=== PATIENT | female | born 1935 | race Caucasian/White ===

== ENCOUNTER 2019-01-19 08:16 | Emergency (ER) | payer MEDICARE, OTHER ==
[~2019-01-19] VITALS: Ht 175.3 cm; Wt 77.6 kg
[~2019-01-19 08:16] MED LIST: ALPR.25; AMIT25 PO; AMLO10; AMLO10 PO; AMOX500 PO; ASCO1ER; ASCO500 PO; ASPI81CH PO; ASPI81EC; ASPI81EC PO; ATOR10; ATOR10 PO; ATOR40TA; CALCAVITD PO; CARB200; CARB200 PO; CARB200ER; CARB200ER PO; CEFTIN PO; CELE200; CEPH500 PO; CLON.1; CLON.1 PO; CLON.2; CLON.2 PO; CLON.3; CLON.3TP; CLON.5; CLON.5 PO; DIPH50; DOCU100 PO; DULO30; DULO60; ESTR.05PBW TOP; FISH1000; FISH1000 PO; HYDACE10B; HYDACE5 PO; HYDCHL25 PO; Hydrocodone Bt1 EACH PO; K-Dur20 MEQ PO; LEVO750 PO; LEVSOD50 PO; LISHYD2025 PO; LISI10 PO; LOSA50 PO; MELO7.5; MELO7.5 PO; METO50; METO50 PO; MINO2.5; MINO2.5 PO; MOM; MORP30ER PO; MULVITA; MULVITA PO; MULVITMIND PO; OLAN5 PO; OLME20; OLME20 PO; OPANA; OXYC20ER; OXYGEN; Omeprazole20 M1 PO; POTA20PAC; PREG75; Prozac40 MG PO; RAMI5; SENN187 PO; SENNA; SPIR25; SYMBYAX; TEKTURNA; TEMA15 PO; TEMA30; TEMA30 PO; TIZA4; TIZA4 PO; TRAM50; TRIHYD253A; Ultram50 MG PO; VERA100; VERAPAMIL; VIVELLE-DOT; [UNRECOGNIZED DRUG - CODE]
[2019-01-19 09:10] LABS: BASOPHILS ABSOLUTE AUTO 0.02 K/mm3 (0.00-0.23); BASOPHILS PERCENT AUTO 0 % (0-2); EOSINOPHILS ABSOLUTE AUTO 0.03 K/mm3 (0.00-0.68); EOSINOPHILS PERCENT AUTO 1 % (0-6); Hematocrit 41.3 % (33.0-51.0); Hemoglobin 13.9 g/dL (11.5-16.0); IMMATURE GRAN ABSOLUTE AUTO 0.01 K/mm3 (0.00-0.10); IMMATURE GRAN PERCENT AUTO 0 % (0-1); LYMPHOCYTES ABSOLUTE AUTO 0.62 K/mm3 (0.84-5.20); LYMPHOCYTES PERCENT AUTO 11 % (21-46); MONOCYTES ABSOLUTE AUTO 0.45 K/mm3 (0.16-1.47); MONOCYTES PERCENT AUTO 8 % (4-13); Mean Corpuscular HGB 30.6 pg (26.0-34.0); Mean Corpuscular HGB Conc 33.7 g/dL (31.5-36.5); Mean Corpuscular Volume 91 fL (80-100); Mean Platelet Volume 9.8 fL (9.1-12.4); NEUTROPHILS ABSOLUTE AUTO 4.43 K/mm3 (1.96-9.15); NEUTROPHILS PERCENT AUTO 80 % (41-73); Platelet Count 249 K/mm3 (150-400); RDW Standard Deviation 43.3 fL (35.1-46.3); Red Blood Cell Count 4.54 M/mm3 (3.80-5.20); White Blood Cell Count 5.56 K/mm3 (4.00-11.30)
[2019-01-19 09:33] LABS: Alanine Aminotransfer (ALT/SGP 32 U/L (12-78); Albumin, Blood 3.4 g/dL (3.4-5.0); Alk Phos 105 U/L (50-136); Anion Gap 11 mmol/L (6-16); Aspartate Aminotrans (AST/SGOT 21 U/L (12-37); Bilirubin, Total 0.4 mg/dL (0.1-1.0); Blood Urea Nitrogen 16 mg/dL (8-24); Bun/Creatinine Ratio 22.8 (12.0-20.0); CO2, Blood 24 mmol/L (21-32); Calcium, Blood 10.1 mg/dL (8.5-10.1); Chloride, Blood 108 mmol/L (98-108); Globulin, Blood 3.5 g/dL (2.2-4.0); Glomerular Filtration Rate >60 (60-); Glucose, Blood 179 mg/dL (70-99); Potassium, Blood 3.8 mmol/L (3.5-5.5); Sodium, Blood 143 mmol/L (136-145); Total Protein, Blood 6.9 g/dL (6.4-8.2)
[2019-01-19 09:43] LABS: Source, Urine Clean Catch
[2019-01-19 10:02] LABS: Bilirubin, Urine Neg (Neg); Blood, Urine Neg (Neg); Glucose Qualitative, Urine Neg (Neg); Ketones, Urine Neg (Neg); Leukocyte Esterase, Urine Neg (Neg); Nitrite, Urine Pos (Neg); Protein, Urine Neg (Neg); Specific Gravity, Urine 1.015 (1.003-1.022); Urobilinogen, Urine NORM (Normal)
[2019-01-19 10:13] LABS: Appearance, Urine Hazy (Clear); Color, Urine Yellow (P-Yellow)
[2019-01-19 10:15] LABS: Bacteria Many /hpf; Red Blood Cells, Urine Not Seen /hpf (0-2); Squamous Epithelial Cells Rare /hpf (Few)
[2019-01-19] MEDS ORDERED: LEVSOD50 PO (12:50)
[2019-01-19] MEDS ORDERED: ZESTRIL40 MG PO (12:50)
== END 2019-01-19 13:42 | disposition home or self-care (01) ==
LOC: ER 08:16
PROVIDERS: Emergency Medicine
DX: K59.00 Constipation, unspecified (principal); I10 Essential (primary) hypertension; Z88.5 Allergy status to narcotic agent; Z88.8 Allergy status to other drugs, medicaments and biological substances; Z79.1 Long term (current) use of non-steroidal anti-inflammatories (NSAID); Z79.899 Other long term (current) drug therapy; Z79.891 Long term (current) use of opiate analgesic; Z79.82 Long term (current) use of aspirin
CPT/HCPCS: 74177; 80053; 81001; 82272; 83690; 85025; 87077; 87086; 87186; 96361; 96374-59; 96375; 99285-25; J1170; J2405; J7120; Q9967

== ENCOUNTER 2019-01-27 07:21 | Emergency (ER) | payer MEDICARE, OTHER ==
[~2019-01-27] VITALS: Ht 172.7 cm; Wt 86.2 kg
[~2019-01-27 07:21] MED LIST changes: +ZESTRIL40 MG PO
[2019-01-27 07:43] LABS: BASOPHILS ABSOLUTE AUTO 0.01 K/mm3 (0.00-0.23); BASOPHILS PERCENT AUTO 0 % (0-2); EOSINOPHILS ABSOLUTE AUTO 0.02 K/mm3 (0.00-0.68); EOSINOPHILS PERCENT AUTO 0 % (0-6); Hematocrit 42.5 % (33.0-51.0); Hemoglobin 14.7 g/dL (11.5-16.0); IMMATURE GRAN ABSOLUTE AUTO 0.04 K/mm3 (0.00-0.10); IMMATURE GRAN PERCENT AUTO 1 % (0-1); LYMPHOCYTES ABSOLUTE AUTO 0.91 K/mm3 (0.84-5.20); LYMPHOCYTES PERCENT AUTO 12 % (21-46); MONOCYTES PERCENT AUTO 8 % (4-13); Mean Corpuscular HGB 30.8 pg (26.0-34.0); Mean Corpuscular HGB Conc 34.6 g/dL (31.5-36.5); Mean Corpuscular Volume 89 fL (80-100); Mean Platelet Volume 9.4 fL (9.1-12.4); NEUTROPHILS ABSOLUTE AUTO 6.35 K/mm3 (1.96-9.15); NEUTROPHILS PERCENT AUTO 80 % (41-73); Platelet Count 301 K/mm3 (150-400); RDW Coefficient Variation 13.1 % (11.7-14.2); RDW Standard Deviation 42.6 fL (35.1-46.3); Red Blood Cell Count 4.78 M/mm3 (3.80-5.20); White Blood Cell Count 7.93 K/mm3 (4.00-11.30)
[2019-01-27 08:03] LABS: Alanine Aminotransfer (ALT/SGP 38 U/L (12-78); Albumin, Blood 3.9 g/dL (3.4-5.0); Alk Phos 112 U/L (50-136); Anion Gap 13 mmol/L (6-16); Aspartate Aminotrans (AST/SGOT 27 U/L (12-37); Bilirubin, Total 0.4 mg/dL (0.1-1.0); Blood Urea Nitrogen 18 mg/dL (8-24); Bun/Creatinine Ratio 28.2 (12.0-20.0); CO2, Blood 23 mmol/L (21-32); Calcium, Blood 9.9 mg/dL (8.5-10.1); Chloride, Blood 99 mmol/L (98-108); Creatinine, Blood 0.64 mg/dL (0.40-1.00); Globulin, Blood 3.8 g/dL (2.2-4.0); Glomerular Filtration Rate >60 (60-); Glucose, Blood 165 mg/dL (70-99); Potassium, Blood 3.5 mmol/L (3.5-5.5); Sodium, Blood 135 mmol/L (136-145); Total Protein, Blood 7.7 g/dL (6.4-8.2)
== END 2019-01-27 11:41 | disposition home or self-care (01) ==
LOC: ER 07:21
PROVIDERS: Emergency Medicine
DX: K59.00 Constipation, unspecified (principal); I10 Essential (primary) hypertension; F32.9 Major depressive disorder, single episode, unspecified; G47.33 Obstructive sleep apnea (adult) (pediatric); E03.9 Hypothyroidism, unspecified; Z88.8 Allergy status to other drugs, medicaments and biological substances; Z88.5 Allergy status to narcotic agent; Z79.891 Long term (current) use of opiate analgesic; Z79.82 Long term (current) use of aspirin; Z79.899 Other long term (current) drug therapy
CPT/HCPCS: 36415; 74177; 80053; 83690; 85025; 96361; 96374-59; 99284-25; J1170; J7030; Q9967

== ENCOUNTER 2019-02-06 13:52 | Emergency (ER) | payer MEDICARE, OTHER ==
[~2019-02-06] VITALS: Ht 175.3 cm; Wt 77.6 kg
[2019-02-06 14:27] LABS: BASOPHILS ABSOLUTE AUTO 0.02 K/mm3 (0.00-0.23); BASOPHILS PERCENT AUTO 0 % (0-2); EOSINOPHILS ABSOLUTE AUTO 0.04 K/mm3 (0.00-0.68); EOSINOPHILS PERCENT AUTO 1 % (0-6); Hematocrit 46.7 % (33.0-51.0); Hemoglobin 15.9 g/dL (11.5-16.0); IMMATURE GRAN ABSOLUTE AUTO 0.02 K/mm3 (0.00-0.10); IMMATURE GRAN PERCENT AUTO 0 % (0-1); LYMPHOCYTES ABSOLUTE AUTO 1.31 K/mm3 (0.84-5.20); LYMPHOCYTES PERCENT AUTO 19 % (21-46); MONOCYTES ABSOLUTE AUTO 0.67 K/mm3 (0.16-1.47); MONOCYTES PERCENT AUTO 10 % (4-13); Mean Corpuscular HGB 31.2 pg (26.0-34.0); Mean Platelet Volume 9.4 fL (9.1-12.4); NEUTROPHILS ABSOLUTE AUTO 4.91 K/mm3 (1.96-9.15); NEUTROPHILS PERCENT AUTO 70 % (41-73); Platelet Count 267 K/mm3 (150-400); RDW Coefficient Variation 13.4 % (11.7-14.2); RDW Standard Deviation 45.2 fL (35.1-46.3); Red Blood Cell Count 5.09 M/mm3 (3.80-5.20); White Blood Cell Count 6.97 K/mm3 (4.00-11.30)
[2019-02-06 14:40] LABS: Mean Corpuscular Volume 92 fL (80-100)
[2019-02-06 14:54] LABS: Alanine Aminotransfer (ALT/SGP 41 U/L (12-78); Alk Phos 132 U/L (50-136); Anion Gap 11 mmol/L (6-16); Aspartate Aminotrans (AST/SGOT 22 U/L (12-37); Bilirubin, Total 0.6 mg/dL (0.1-1.0); Blood Urea Nitrogen 16 mg/dL (8-24); Bun/Creatinine Ratio 21.9 (12.0-20.0); CO2, Blood 24 mmol/L (21-32); Calcium, Blood 10.7 mg/dL (8.5-10.1); Chloride, Blood 103 mmol/L (98-108); Creatinine, Blood 0.73 mg/dL (0.40-1.00); Globulin, Blood 4.1 g/dL (2.2-4.0); Glomerular Filtration Rate >60 (60-); Glucose, Blood 114 mg/dL (70-99); Potassium, Blood 3.6 mmol/L (3.5-5.5); Sodium, Blood 138 mmol/L (136-145); Total Protein, Blood 8.1 g/dL (6.4-8.2)
--- NOTE | 2019-02-06 17:11 | NUR ---
INITIAL [facility] VISIT MADE IN ER RM# [address] REQUEST. PT HAD VOICED DESIRE FOR "PATIENT ASSISTED SUICIDE" DURING DR'S CONVERSATION WITH PT. VISIT MADE FOR S/S MANAGEMENT, DETERMINE GOALS OF CARE AND PT'S WISHES FOR CARE. THIS IS PT'S THIRD ER VISIT IN 3-4 WEEKS FOR ABDOMINAL PAIN. HER FIRST TWO VISITS WERE FOR RIGHT AND LEFT LOWER QUAD ABD PAIN AND PT WAS FOUND TO BE CONSTIPATED. SHE REPORTS SEVERE EPIGASTRIC PAIN STARTING THIS AM AND CAME TO ER FOR EVAL. TEMO IS AN 83 YR OLD FEMALE WITH HX OF HTN (BP IN ER RIGHT NOW IS 195/98 PER MONITOR AND AUTO BP CHECK), GENNA, HYPOTHYROID, DEPRESSION AND POLYCYSTIC KIDNEY AND LIVER DISEASE NOTED PREVIOUSLY. HER CT SCAN TODAY WAS NEGATIVE FOR ANY ACUTE PROCESS OR CHANGE FROM THE CT DONE 01/27 AND THE ONE DONE A NUMBER OF WEEKS BEFORE THAT, PER . PT APPEARS VERY ANXIOUS TO THE POINT OF HYPERVENTILATING SEVERAL TIMES WHILE I WAS IN THE ROOM WITH HER FOR APPROX 1 HOUR. I ASKED PT IF SHE WAS SINCERE IN HER REQUEST FOR PAS. I EXPLAINED THAT WE DO NOT DO PAS HERE, THE STRINGENT PROCESS AND CRITERIA FOR SEEKING PAS. I EXPLAINED SHE WOULD REQUIRE A TERMINAL DX, WHICH SHE DOES NOT HAVE AND SHE WOULD NOT BE CONSIDERED IF SHE HAS ACTIVE DEPRESSION. PT STATED SHE WAS HALF-JOKING BUT IS FRUSTRATED. I ASKED QUESTIONS RE: OTHER S/S, BOWEL REGIME AT HOME, NARCOTIC USE, ANTIDEPRESSANTS, ANXIETY MEDICATIONS ETC. I DID SOME DEEP BREATHING EXERCISES WITH HER AND VISUALIZATION. SHE DOES WELL WITH COACHING BUT QUICKLY REVERTS TO HYPERVENTILATION AND STUTTERING THE SAME QUESTIONS, WITH WORD FINDING DIFFICULTY WHEN ANXIETY IS ESCALATING. I DISCUSSED QUALITY OF LIFE AND GOALS WITH CARE. PT AGREES TO DOCUMENT HER WISHES WITH A POLST. PT INITIALLY STATED SHE WANTED CPR BUT THEN ASKED FOR NO CPR, NO INTUBATION, LIMITED MEDICAL INTERVENTIONS AND TREATMENT AND NO FEEDING TUBE. I RECORDED HER REQUESTS, PT AND DR SIGNED POLST. ORIGINAL POLST FORM WAS GIVEN TO THE PT WITH INSTRUCTIONS TO KEEP THAT WITH HER AND TO PROVIDE NEW DRS OR FACILITIES WITH A COPY. COPY OF POLST FAXED TO DR PADILLA, HER PCP AND TO OUR MEDICAL RECORDS FOR SCANNING INTO EMR. DISCUSSED MY VISIT WITH DR AND PT'S RN. DISCUSSED ANTIDEPRESSANT AND ANTI-ANXIETY AGENT PRN. NEW RXS WRITTEN BY AND I EXPLAINED TO PT. PT IS HAVING SIGNIFICANT SHORT TERM MEMORY ISSUES BUT SHE IS AWARE SHE IS REPEATING QUESTIONS. I BELIEVE HER THOUGHT PROCESSES ARE MORE IMPAIRED THAN USUAL TODAY WITH HER OBVIOUS EXTREME ANXIETY. I DO NOT KNOW WHAT HER BASELINE IS, WE HAVE NOT MET BEFORE TODAY. I ASSURED PT THAT HER RN WOULD REVIEW HER D/C INSTRUCTIONS AND SHE WOULD HAVE THEM IN WRITING BEFORE SHE LEFT FOR HOME TODAY. I ENCOURAGED HER TO F/U WITH HER PCP SOON POSSIBLE AND THAT IF S/S RETURN/PERSIST TO GET IN TO SEE HER DR, WHO KNOWS HER HX & ISSUES BEST. RXS WRITTEN ON D/C FOR ZYPRESA, ATIVAN PRN AND METHYLNALTREXONE. PT STATES SHE IS USING NARCOTICS FOR PAIN MANAGEMENT REGULARLY AT HOME. REVIEWED GI SIDE EFFECTS INCLUDING CONSTIPATION GASTROPARESIS AND BILIARY COLIC WITH NARCOTIC USE. PT STATES AFTER THE LAST TWO VISITS SHE HAS DONE A BETTER JOB OF USING A LAXATIVE DAILY TO AVOID CONSTIPATION AGAIN. I AM CONCERNED THAT SHE MAY NEED MORE HELP WITH MEDICATION MANAGEMENT AND MAY BE OVER-USING HER NARCOTICS AT HOME. PT STATES HER IS ABLE TO HELP HER AND WILL COME IN TO TAKE HER HOME. SHE REPORTS THAT SHE ALSO HAS A CAREGIVER. PT INSTRUCTED TO TAKE HER AFTERNOON BP MEDICATION THAT SHE HAS MISSED WHEN SHE GETS HOME. PT VERBALIZES UNDERSTANDING. ADDITIONAL COACHING AND INSTRUCTION GIVEN ON MANAGING HER ANXIETY AT HOME WHEN IT BEGINS TO AFFECT HER BREATHING AND INCREASES HER PAIN. PT GETS VERY DYSPNIC WHEN HYPERVENTILATING DUE TO ANXIETY. NONPHARMACOLOGICAL INTERVENTIONS FOR TREATING ANXIETY AND PAIN DISCUSSED SUCH HEAT, ICE, DISTRACTION, MOVEMENT, RELAXATION/DEEP BREATHING, CONVERSATION, ETC. I EXPLAINED THAT HER PAIN MEDICATION MAY BE CAUSING SOME OF HER GI S/S AND PAIN, TO USE IT A LAST RESORT OR TALK WITH HER DR ABOUT OTHER PAIN RELEIVING MEDICATIONS/TREATMENTS. PT VERBALIZED UNDERSTANDING.
[2019-02-06] MEDS ORDERED: MOVANTIK25 MG PO (17:13)
[2019-02-06] MEDS ORDERED: Ativan1 MG SL (17:13)
== END 2019-02-06 18:35 | disposition home or self-care (01) ==
LOC: ER 13:52
PROVIDERS: Emergency Medicine
DX: R10.13 Epigastric pain (principal); R10.10 Upper abdominal pain, unspecified; F32.9 Major depressive disorder, single episode, unspecified; I10 Essential (primary) hypertension; G47.33 Obstructive sleep apnea (adult) (pediatric); E03.9 Hypothyroidism, unspecified; Z88.8 Allergy status to other drugs, medicaments and biological substances; Z79.899 Other long term (current) drug therapy; Z79.52 Long term (current) use of systemic steroids
CPT/HCPCS: 74177; 80053; 83690; 85025; 93005; 93010; 96361; 96374-59; 96375; 96376; 99285-25; C9113; J1170; J2405; J7030; Q9967